=== PATIENT | female | born 1945 | race Caucasian/White ===

== ENCOUNTER 2017-11-27 18:51 | Emergency (ER) | payer MEDICARE, MEDICAID ==
[~2017-11-27] VITALS: Ht 154.9 cm; Wt 77.0 kg
[~2017-11-27 18:51] MED LIST: CARV-50 PO; CYCL-1 PO; DOCU-28 PO; DOCU100C40 PO; GABA-532 PO; GOLYS PO; HYDR-569 PO; INSU100C4 SQ; LANTUS SQ; NITR100C6 PO; OMEP-84 PO; ONDA8TAB6 PO; ROSU10TA PO; SUCR1TAB PO; VALS40TA2 PO
[2017-11-27 19:27] VITALS: BP 122/41
[2017-11-27] MEDS ORDERED: HYDROcodone/acetaminophen 5mg/325mg tablet PO ONE (21:55)
== END 2017-11-27 22:10 | disposition home or self-care (01) ==
LOC: ER 18:52
DX: S16.1XXA Strain of muscle, fascia and tendon at neck level, initial encounter (principal); E11.42 Type 2 diabetes mellitus with diabetic polyneuropathy; I25.10 Atherosclerotic heart disease of native coronary artery without angina pectoris; E78.00 Pure hypercholesterolemia, unspecified; I10 Essential (primary) hypertension; Z86.718 Personal history of other venous thrombosis and embolism; Z90.710 Acquired absence of both cervix and uterus; Z59.0 Homelessness; Z79.4 Long term (current) use of insulin; X58.XXXA Exposure to other specified factors, initial encounter; Y93.89 Activity, other specified; Y92.89 Other specified places as the place of occurrence of the external cause; Y99.8 Other external cause status; Z88.0 Allergy status to penicillin
CPT/HCPCS: 82948; 99283

== ENCOUNTER 2018-03-26 15:05 | Emergency (ER) | payer MEDICARE, MEDICAID ==
[~2018-03-26] VITALS: Ht 154.9 cm; Wt 73.9 kg
[~2018-03-26 15:05] MED LIST changes: -NITR100C6 PO
[2018-03-26 16:28] LABS: BASOPHILS % (AUTO) 0.3 % (0-1); EOSINOPHILS # (AUTO) 0.1 X10'3 (0-0.9); EOSINOPHILS % (AUTO) 2.1 % (0-6); HEMATOCRIT 36.6 % (35.0-45.0); HEMOGLOBIN 12.7 g/dl (12.0-16.0); LYMPHOCYTES # (AUTO) 1.2 X10'3 (1.1-4.8); LYMPHOCYTES % (AUTO) 20.4 % (21-51); MEAN CORPUSCULAR HEMOGLOBIN 31.1 PG (27.0-31.0); MEAN CORPUSCULAR HGB CONC 34.6 % (33.0-36.5); MEAN CORPUSCULAR VOLUME 89.7 FL (78-98); MEAN PLATELET VOLUME 10.5 FL (7.4-10.4); MONOCYTES # (AUTO) 0.3 X10'3 (0-0.9); MONOCYTES % (AUTO) 4.7 % (2-12); NEUTROPHILS # (AUTO) 4.2 X10'3 (1.8-7.7); NEUTROPHILS % (AUTO) 72.5 % (42-75); PLATELET COUNT 215 X10'3 (140-440); RED BLOOD COUNT 4.08 X10'6 (4.20-5.60); RED CELL DISTRIBUTION WIDTH 13.2 % (11.5-14.5); WHITE BLOOD COUNT 5.8 X10'3 (4.5-11.0)
[2018-03-26 16:39] LABS: PROTHROMBIN TIME 9.9 SECONDS (9.0-12.0)
[2018-03-26 16:42] LABS: LARGE PLATELETS FEW; PLATELET ESTIMATE NORMAL
[2018-03-26 16:44] LABS: ALANINE AMINOTRANSFERASE 20 U/L (12-78); ALBUMIN 3.4 G/DL (3.4-5.0); ALKALINE PHOSPHATASE 143 IU/L (46-116); ANION GAP 10 (8-16); ASPARTATE AMINO TRANSFERASE 14 U/L (10-37); BILIRUBIN,TOTAL 0.6 MG/DL (0.1-1.0); BLOOD UREA NITROGEN 13 MG/DL (7-18); BUN/CREATININE RATIO 15.3 (6.6-38.0); CHLORIDE 99 MMOL/L (99-107); CREATININE 0.85 MG/DL (0.40-0.90); GLUCOSE 428 MG/DL (70-104); POTASSIUM 4.3 MMOL/L (3.5-5.1); SODIUM 133 MMOL/L (135-145); TOTAL CARBON DIOXIDE 24.3 MMOL/L (24-32); TOTAL PROTEIN 6.9 G/DL (6.4-8.2); eGFR 65 ML/MIN
[2018-03-26] MEDS ORDERED: ondansetron 4mg rapidly disintigrating tab PO ONE (18:30)
[2018-03-26] MEDS ORDERED: HYDROcodone/acetaminophen 5mg/325mg tablet PO ONE (18:30)
[2018-03-26 19:01] LABS: CLARITY,URINE CLEAR (Clear); COLOR,URINE YELLOW (Yellow); GLUCOSE, URINE >=1000 mg/dl (Neg); KETONES,URINE 15 mg/dl (Neg); LEUKOCYTE ESTERASE ,URINE NEGATIVE (Neg); NITRITES, URINE NEGATIVE (Neg); OCCULT BLOOD,URINE TRACE-INTACT (Neg); PROTEIN,URINE 100 mg/dl (Neg); UROBILINOGEN,URINE 0.2 E.U/dL (0.2-1.0)
[2018-03-26 19:07] LABS: UA COLLECTION TYPE CLN CATCH MIDSTREAM
[2018-03-26 19:08] LABS: BACTERIA,URINE NONE SEEN /HPF (Neg); RBC,URINE 0-2 /HPF (0-2); SQUAMOUS EPITHELIAL CELL,UR FEW /LPF (FEW); WBC,URINE 0-4 /HPF (0-4)
[2018-03-26 19:09] LABS: YEAST FEW /HPF (NEGATIVE)
[2018-03-26] MEDS ORDERED: hydrALAZINE 25 MG tablet PO ONE (19:25)
[2018-03-26] MEDS ORDERED: ESOM40CA30 PO (19:41)
[2018-03-26] MEDS ORDERED: HYDR-3965 PO (19:41)
[2018-03-26] MEDS ORDERED: ONDA4TAB12 PO (19:41)
[2018-03-26 19:56] VITALS: BP 180/93
== END 2018-03-26 19:58 | disposition home or self-care (01) ==
LOC: ER 15:06
DX: R10.12 Left upper quadrant pain (principal); R10.84 Generalized abdominal pain; R11.0 Nausea; E78.00 Pure hypercholesterolemia, unspecified; I25.10 Atherosclerotic heart disease of native coronary artery without angina pectoris; I49.9 Cardiac arrhythmia, unspecified; E11.42 Type 2 diabetes mellitus with diabetic polyneuropathy; I10 Essential (primary) hypertension; Z86.718 Personal history of other venous thrombosis and embolism; Z90.49 Acquired absence of other specified parts of digestive tract; Z90.710 Acquired absence of both cervix and uterus; Z98.890 Other specified postprocedural states; Z60.2 Problems related to living alone; Z88.0 Allergy status to penicillin; Z88.8 Allergy status to other drugs, medicaments and biological substances; Z88.5 Allergy status to narcotic agent; Z88.1 Allergy status to other antibiotic agents; Z79.4 Long term (current) use of insulin; Z79.899 Other long term (current) drug therapy
CPT/HCPCS: 36415; 74176; 80053; 81001; 85025; 85610; 99285

== ENCOUNTER 2018-06-24 23:38 | Emergency (ER) | payer MEDICARE, MEDICAID ==
[~2018-06-24] VITALS: Ht 154.9 cm; Wt 75.4 kg
[~2018-06-24 23:38] MED LIST changes: +ESOM40CA30 PO; +HYDR-4383 PO; -HYDR-569 PO; +ONDA4TAB12 PO
[2018-06-24 23:49] VITALS: BP 198/100
[2018-06-25] MEDS ORDERED: LORazepam 2 mg/ml vial IV ONE (01:40)
[2018-06-25] MEDS ORDERED: diphenhydrAMINE 50 mg/ml inj IV ONE (01:40)
[2018-06-25] MEDS ORDERED: ondansetron/PF 4mg/2ml inj IV ONE (01:40)
[2018-06-25] MEDS ORDERED: ketorolac trometh. 30mg/ml inj. IV ONE (01:40)
== END 2018-06-25 03:26 | disposition home or self-care (01) ==
LOC: ER 23:39
DX: G43.909 Migraine, unspecified, not intractable, without status migrainosus (principal); E11.42 Type 2 diabetes mellitus with diabetic polyneuropathy; I25.10 Atherosclerotic heart disease of native coronary artery without angina pectoris; E78.00 Pure hypercholesterolemia, unspecified; I10 Essential (primary) hypertension; K21.9 Gastro-esophageal reflux disease without esophagitis; Z86.718 Personal history of other venous thrombosis and embolism; Z87.891 Personal history of nicotine dependence; Z90.49 Acquired absence of other specified parts of digestive tract; Z90.710 Acquired absence of both cervix and uterus; Z98.890 Other specified postprocedural states; Z88.8 Allergy status to other drugs, medicaments and biological substances; Z88.0 Allergy status to penicillin; Z88.1 Allergy status to other antibiotic agents; Z88.5 Allergy status to narcotic agent; Z88.6 Allergy status to analgesic agent; Z79.899 Other long term (current) drug therapy; Z79.4 Long term (current) use of insulin
CPT/HCPCS: 96374; 96375; 99284; J1200; J1885; J2060; J2405

== ENCOUNTER 2018-07-28 16:30 | Emergency (ER) | payer MEDICARE, MEDICAID ==
[~2018-07-28] VITALS: Ht 157.5 cm; Wt 75.0 kg
[2018-07-28 16:42] VITALS: BP 110/83
[2018-07-28] MEDS ORDERED: HYDROmorphone 1 mg/ml syringe IM ONE (16:50)
[2018-07-28] MEDS ORDERED: ondansetron 4mg rapidly disintigrating tab PO ONE (16:55)
[2018-07-28] MEDS ORDERED: HYDR-3965 PO (17:39)
== END 2018-07-28 18:03 | disposition home or self-care (01) ==
LOC: ER 16:31
DX: M25.512 Pain in left shoulder (principal); E11.42 Type 2 diabetes mellitus with diabetic polyneuropathy; I25.10 Atherosclerotic heart disease of native coronary artery without angina pectoris; E78.00 Pure hypercholesterolemia, unspecified; I10 Essential (primary) hypertension; K21.9 Gastro-esophageal reflux disease without esophagitis; Z86.718 Personal history of other venous thrombosis and embolism; Z90.49 Acquired absence of other specified parts of digestive tract; Z90.710 Acquired absence of both cervix and uterus; Z88.1 Allergy status to other antibiotic agents; Z88.5 Allergy status to narcotic agent; Z88.2 Allergy status to sulfonamides; Z91.018 Allergy to other foods; Z88.8 Allergy status to other drugs, medicaments and biological substances; Z79.4 Long term (current) use of insulin; Z79.01 Long term (current) use of anticoagulants; Z79.899 Other long term (current) drug therapy; Z60.2 Problems related to living alone; W18.39XA Other fall on same level, initial encounter; Y93.89 Activity, other specified; Y92.090 Kitchen in other non-institutional residence as the place of occurrence of the external cause; Y99.8 Other external cause status
CPT/HCPCS: 29105; 73060; 96372; 99284; J1170

== ENCOUNTER 2018-08-29 09:25 | Inpatient (IN) | payer MEDICARE, MEDICAID ==
[~2018-08-29] VITALS: Ht 154.9 cm; Wt 71.0 kg
[~2018-08-29 09:25] MED LIST changes: +HYDR-3965 PO
[2018-08-29 10:07] LABS: CLARITY,URINE CLEAR (Clear); COLOR,URINE YELLOW (Yellow); GLUCOSE, URINE >=1000 mg/dl (Neg); KETONES,URINE 40 mg/dl (Neg); LEUKOCYTE ESTERASE ,URINE NEGATIVE (Neg); NITRITES, URINE NEGATIVE (Neg); OCCULT BLOOD,URINE TRACE-LYSED (Neg); PROTEIN,URINE 100 mg/dl (Neg); UROBILINOGEN,URINE 0.2 E.U/dL (0.2-1.0)
[2018-08-29 10:08] LABS: UA COLLECTION TYPE VOIDED
[2018-08-29] MEDS ORDERED: normal saline 1000ml 1,000 ML IV ONE (10:09)
[2018-08-29] MEDS ORDERED: normal saline 1000ML IV soln IVB ONE (10:10)
[2018-08-29] MEDS ORDERED: ondansetron/PF 4mg/2ml inj IV ONE ×2 (10:10→12:50)
[2018-08-29 10:17] LABS: MUCUS STRANDS FEW /LPF (Neg); SQUAMOUS EPITHELIAL CELL,UR MODERATE /LPF (FEW)
[2018-08-29 10:20] LABS: BACTERIA,URINE 1+ /HPF (Neg); RBC,URINE 0-2 /HPF (0-2)
[2018-08-29 10:46] LABS: BASOPHILS % (AUTO) 0.5 % (0-1); EOSINOPHILS # (AUTO) 0.1 X10'3 (0-0.9); EOSINOPHILS % (AUTO) 1.9 % (0-6); HEMATOCRIT 33.9 % (35.0-45.0); HEMOGLOBIN 11.5 g/dl (12.0-16.0); LYMPHOCYTES % (AUTO) 18.3 % (21-51); MEAN CORPUSCULAR HEMOGLOBIN 31.6 PG (27.0-31.0); MEAN CORPUSCULAR HGB CONC 33.9 % (33.0-36.5); MEAN PLATELET VOLUME 10.3 FL (7.4-10.4); MONOCYTES # (AUTO) 0.2 X10'3 (0-0.9); MONOCYTES % (AUTO) 4.8 % (2-12); NEUTROPHILS # (AUTO) 3.9 X10'3 (1.8-7.7); NEUTROPHILS % (AUTO) 74.5 % (42-75); PLATELET COUNT 207 X10'3 (140-440); RED BLOOD COUNT 3.64 X10'6 (4.20-5.60); WHITE BLOOD COUNT 5.2 X10'3 (4.5-11.0)
[2018-08-29] MEDS: diatr meglu/diatrizoate 30ml oral sol.-(3 dose) bottle PO SCH ×3 (10:55→11:41)
[2018-08-29 11:07] LABS: ALANINE AMINOTRANSFERASE 18 U/L (12-78); ALBUMIN 3.4 G/DL (3.4-5.0); ALKALINE PHOSPHATASE 172 IU/L (46-116); ANION GAP 10 (8-16); ASPARTATE AMINO TRANSFERASE 13 U/L (10-37); BILIRUBIN,TOTAL 0.9 MG/DL (0.1-1.0); BLOOD UREA NITROGEN 11 MG/DL (7-18); BUN/CREATININE RATIO 15.1 (6.6-38.0); CALCIUM 9.1 MG/DL (8.5-10.1); CHLORIDE 99 MMOL/L (99-107); CREATININE 0.73 MG/DL (0.40-0.90); GLUCOSE 311 MG/DL (70-104); PARTIAL THROMBOPLASTIN TIME 25 SECONDS (22-32); POTASSIUM 4.1 MMOL/L (3.5-5.1); PROTHROMBIN TIME 10.3 SECONDS (9.0-12.0); SODIUM 136 MMOL/L (135-145); TOTAL CARBON DIOXIDE 27.2 MMOL/L (24-32); TOTAL PROTEIN 6.9 G/DL (6.4-8.2); eGFR 78 ML/MIN
[2018-08-29 11:12] LABS: ETHANOL < 0.010 GM/DL (0.0-0.010); LIPASE 55 U/L (73-393); MAGNESIUM 1.8 MG/DL (1.5-2.4)
[2018-08-29] MEDS ORDERED: insulin regular, human 10 units/0.1 ml syringe IV ONE (11:25)
[2018-08-29] MEDS: morphine 2 MG/ML inj. syringe IV PRN ×3 (11:54→22:43)
[2018-08-29] MEDS ORDERED: diphenhydrAMINE 50 mg/ml inj IV ONE (12:55)
[2018-08-29] MEDS ORDERED: iohexol 300mg/ml 100ml inj. ONE (13:19)
[2018-08-29] MEDS ORDERED: metroNIDAZOLE-Flagyl 500mg/NS 100 ML IV ONE (15:10)
[2018-08-29] MEDS: normal saline 1000ml 1,000 ML IV SCH ×2 (16:04→23:31)
[2018-08-29] MEDS ORDERED: HYDROmorphone 1 mg/ml syringe IV PRN (16:05)
[2018-08-29] MEDS ORDERED: dextrose 50%-water 50ml dispensing syringe IV PRN ×2 (16:05)
[2018-08-29] MEDS ORDERED: magnesium 4gm in 100ml NS 100 ML IV PRN (16:05)
[2018-08-29] MEDS ORDERED: magnesium hydroxide 30ml (MOM) UD suspension PO PRN (16:05)
[2018-08-29] MEDS ORDERED: MESSAGE TO PHARMACY PO ONE (16:05)
[2018-08-29] MEDS ORDERED: mag hydrox/Alum hydrox/simeth 30ml oral suspension PO PRN (16:05)
[2018-08-29] MEDS ORDERED: magnesium Cl slow-release 64mg tablet PO PRN (16:05)
[2018-08-29] MEDS ORDERED: acetaminophen 325mg tablet PO PRN ×2 (16:05)
[2018-08-29] MEDS ORDERED: potassium Cl 40MEQ/NS 500ml 500 ML IV PRN ×2 (16:05)
[2018-08-29] MEDS ORDERED: glucagon, human recombinant 1mg kit SUBCUT PRN (16:05)
[2018-08-29] MEDS ORDERED: potassium Cl 20 mEq SR tablet PO PRN ×2 (16:05)
[2018-08-29] MEDS: ondansetron/PF 4mg/2ml inj IV PRN (17:14)
[2018-08-29] MEDS: HYDROcodone/acetaminophen 10/325mg tab PO PRN (17:35)
[2018-08-29] MEDS: insulin glargine (Lantus) pen - multi-dose SQ SCH (21:00)
[2018-08-30] MEDS: ondansetron/PF 4mg/2ml inj IV PRN ×4 (00:48→19:29)
[2018-08-30] MEDS ORDERED: ondansetron/PF 4mg/2ml inj IV PRN (03:40)
[2018-08-30] MEDS ORDERED: LISI10TA4 PO (07:39)
[2018-08-30] MEDS ORDERED: LINA5TAB4 PO (07:39)
[2018-08-30] MEDS: K and/or MAG REPLACEMENT MC SCH (08:00)
[2018-08-30 09:18] LABS: BASOPHILS % (AUTO) 0.4 % (0-1); EOSINOPHILS # (AUTO) 0.2 X10'3 (0-0.9); EOSINOPHILS % (AUTO) 3.5 % (0-6); HEMATOCRIT 29.4 % (35.0-45.0); LYMPHOCYTES # (AUTO) 1.1 X10'3 (1.1-4.8); LYMPHOCYTES % (AUTO) 21.8 % (21-51); MEAN CORPUSCULAR HEMOGLOBIN 31.9 PG (27.0-31.0); MEAN CORPUSCULAR HGB CONC 34.1 % (33.0-36.5); MEAN CORPUSCULAR VOLUME 93.5 FL (78-98); MEAN PLATELET VOLUME 10.1 FL (7.4-10.4); MONOCYTES # (AUTO) 0.4 X10'3 (0-0.9); MONOCYTES % (AUTO) 7.7 % (2-12); NEUTROPHILS # (AUTO) 3.3 X10'3 (1.8-7.7); NEUTROPHILS % (AUTO) 66.6 % (42-75); PLATELET COUNT 185 X10'3 (140-440); RED BLOOD COUNT 3.14 X10'6 (4.20-5.60); RED CELL DISTRIBUTION WIDTH 13.9 % (11.5-14.5); WHITE BLOOD COUNT 4.9 X10'3 (4.5-11.0)
[2018-08-30 09:27] LABS: ALBUMIN 2.7 G/DL (3.4-5.0); ANION GAP 9 (8-16); BLOOD UREA NITROGEN 9 MG/DL (7-18); BUN/CREATININE RATIO 14.3 (6.6-38.0); CALCIUM 8.2 MG/DL (8.5-10.1); CHLORIDE 106 MMOL/L (99-107); CREATININE 0.63 MG/DL (0.40-0.90); GLUCOSE 149 MG/DL (70-104); MAGNESIUM 1.8 MG/DL (1.5-2.4); POTASSIUM 3.7 MMOL/L (3.5-5.1); SODIUM 141 MMOL/L (135-145); TOTAL CARBON DIOXIDE 25.7 MMOL/L (24-32); eGFR > 90 ML/MIN
[2018-08-30] MEDS: enoxaparin 40mg/0.4ml syringe SQ SCH (10:00)
[2018-08-30] MEDS: normal saline 1000ml 1,000 ML IV SCH (11:29)
[2018-08-30] MEDS: pantoprazole 40 MG vial IV SCH ×2 (11:29→19:25)
[2018-08-30 13:30] VITALS: BP 174/64
[2018-08-30] MEDS: HYDROcodone/acetaminophen 10/325mg tab PO PRN ×2 (14:20→19:26)
[2018-08-30] MEDS ORDERED: bisacodyl 10mg suppository rectal RC PRN (16:55)
[2018-08-30] MEDS ORDERED: magnesium hydroxide 30ml (MOM) UD suspension PO ONE (16:55)
[2018-08-30] MEDS: docusate sod 100mg capsule PO SCH (19:25)
[2018-08-30 20:00] VITALS: BP 132/58
[2018-08-30] MEDS: insulin glargine (Lantus) pen - multi-dose SQ SCH (23:25)
[2018-08-30] MEDS: insulin Lispro (HumaLOG) vial - multi-dose SQ SCH (23:27)
[2018-08-31] VITALS: BP 154/66
[2018-08-31] MEDS: ondansetron/PF 4mg/2ml inj IV PRN ×2 (01:33→09:15)
[2018-08-31] MEDS: normal saline 1000ml 1,000 ML IV SCH ×3 (01:35→17:08)
[2018-08-31] MEDS: HYDROcodone/acetaminophen 10/325mg tab PO PRN ×2 (01:38→07:59)
[2018-08-31] MEDS: K and/or MAG REPLACEMENT MC SCH (07:50)
[2018-08-31 08:00] VITALS: BP 195/103
[2018-08-31] MEDS: docusate sod 100mg capsule PO SCH ×2 (08:00→20:00)
[2018-08-31] MEDS: enoxaparin 40mg/0.4ml syringe SQ SCH (08:00)
[2018-08-31] MEDS: pantoprazole 40 MG vial IV SCH ×2 (09:15→19:14)
[2018-08-31] MEDS: insulin Lispro (HumaLOG) vial - multi-dose SQ SCH (09:26)
[2018-08-31 09:32] LABS: BASOPHILS % (AUTO) 0.5 % (0-1); EOSINOPHILS # (AUTO) 0.2 X10'3 (0-0.9); EOSINOPHILS % (AUTO) 4.5 % (0-6); HEMATOCRIT 28.2 % (35.0-45.0); HEMOGLOBIN 9.5 g/dl (12.0-16.0); LYMPHOCYTES # (AUTO) 0.9 X10'3 (1.1-4.8); LYMPHOCYTES % (AUTO) 20.8 % (21-51); MEAN CORPUSCULAR HEMOGLOBIN 31.4 PG (27.0-31.0); MEAN CORPUSCULAR HGB CONC 33.6 % (33.0-36.5); MEAN CORPUSCULAR VOLUME 93.4 FL (78-98); MEAN PLATELET VOLUME 9.6 FL (7.4-10.4); MONOCYTES # (AUTO) 0.3 X10'3 (0-0.9); MONOCYTES % (AUTO) 7.9 % (2-12); NEUTROPHILS # (AUTO) 2.9 X10'3 (1.8-7.7); NEUTROPHILS % (AUTO) 66.3 % (42-75); PLATELET COUNT 183 X10'3 (140-440); RED BLOOD COUNT 3.02 X10'6 (4.20-5.60); RED CELL DISTRIBUTION WIDTH 14.1 % (11.5-14.5); WHITE BLOOD COUNT 4.4 X10'3 (4.5-11.0)
[2018-08-31 09:38] LABS: ALBUMIN 2.5 G/DL (3.4-5.0); ANION GAP 10 (8-16); BLOOD UREA NITROGEN 6 MG/DL (7-18); BUN/CREATININE RATIO 9.2 (6.6-38.0); CHLORIDE 105 MMOL/L (99-107); CREATININE 0.65 MG/DL (0.40-0.90); GLUCOSE 171 MG/DL (70-104); MAGNESIUM 1.8 MG/DL (1.5-2.4); POTASSIUM 3.3 MMOL/L (3.5-5.1); SODIUM 140 MMOL/L (135-145); TOTAL CARBON DIOXIDE 25.5 MMOL/L (24-32); eGFR 89 ML/MIN
[2018-08-31 11:00] VITALS: BP 186/74
[2018-08-31 11:50] LABS: H PYLORI ANTIBODY NEGATIVE (Neg)
[2018-08-31] MEDS: diatr meglu/diatrizoate 30ml oral sol.-(3 dose) bottle PO PRN ×2 (13:06→17:07)
[2018-08-31] MEDS: ondansetron inj. 24 MG in normal saline 250ml IV soln 228 ML IV SCH (13:06)
[2018-08-31] MEDS: HYDROmorphone 1 mg/ml syringe IV PRN ×3 (13:24→23:12)
[2018-08-31] MEDS ORDERED: iohexol 300mg/ml 100ml inj. ONE (17:11)
[2018-08-31] MEDS ORDERED: vancomycin/NS 1 GM ADD-VANTAGE 250 ML IV SCH (18:00)
[2018-08-31] MEDS: hydrALAZINE 20mg/ml inj. IV SCH ×2 (20:00→23:15)
[2018-08-31] MEDS: vancomycin/NS 1 GM ADD-VANTAGE 250 ML IV SCH (20:04)
[2018-08-31] MEDS ORDERED: diatr meglu/diatrizoate 30ml oral sol.-(3 dose) bottle PO SCH (21:00)
[2018-08-31 23:14] VITALS: BP 211/99
[2018-08-31 23:21] VITALS: BP 199/74
[2018-08-31 23:28] VITALS: BP 155/84
[2018-08-31] MEDS: metroNIDAZOLE-Flagyl 500mg/NS 100 ML IV SCH (23:47)
[2018-08-31] MEDS: insulin glargine (Lantus) pen - multi-dose SQ SCH (23:49)
[2018-09-01] VITALS (9 sets, daily range): BP systolic 140–217; BP diastolic 50–104
[2018-09-01] MEDS: LORazepam 2 mg/ml vial IV PRN ×3 (01:30→20:39)
[2018-09-01] MEDS: normal saline 1000ml 1,000 ML IV SCH ×3 (04:33→18:50)
[2018-09-01] MEDS: HYDROmorphone 1 mg/ml syringe IV PRN ×2 (04:34→19:30)
[2018-09-01] MEDS ORDERED: MIDAZolam 5mg/5ml vial ONE (06:21)
[2018-09-01] MEDS ORDERED: fentaNYL/PF 50MCG/1 ML 2ML syringe ONE (06:21)
[2018-09-01] MEDS ORDERED: LIDOcaine Viscous 15ml cup ONE (06:21)
[2018-09-01] MEDS: docusate sod 100mg capsule PO SCH ×3 (08:00→20:08)
[2018-09-01] MEDS: K and/or MAG REPLACEMENT MC SCH (08:00)
[2018-09-01] MEDS: vancomycin/NS 1 GM ADD-VANTAGE 250 ML IV SCH ×2 (08:27→20:07)
[2018-09-01] MEDS: hydrALAZINE 20mg/ml inj. IV SCH ×3 (08:27→20:07)
[2018-09-01] MEDS: pantoprazole 40 MG vial IV SCH ×2 (08:27→20:04)
[2018-09-01] MEDS: insulin Lispro (HumaLOG) vial - multi-dose SQ SCH (09:15)
[2018-09-01 09:22] LABS: BASOPHILS % (AUTO) 0.3 % (0-1); EOSINOPHILS # (AUTO) 0.1 X10'3 (0-0.9); EOSINOPHILS % (AUTO) 1.5 % (0-6); HEMATOCRIT 30.8 % (35.0-45.0); HEMOGLOBIN 10.4 g/dl (12.0-16.0); LYMPHOCYTES # (AUTO) 0.6 X10'3 (1.1-4.8); MEAN CORPUSCULAR HEMOGLOBIN 31.9 PG (27.0-31.0); MEAN CORPUSCULAR HGB CONC 33.8 % (33.0-36.5); MEAN CORPUSCULAR VOLUME 94.3 FL (78-98); MEAN PLATELET VOLUME 9.6 FL (7.4-10.4); MONOCYTES # (AUTO) 0.3 X10'3 (0-0.9); MONOCYTES % (AUTO) 6.5 % (2-12); NEUTROPHILS # (AUTO) 4.1 X10'3 (1.8-7.7); NEUTROPHILS % (AUTO) 80.7 % (42-75); PLATELET COUNT 192 X10'3 (140-440); RED BLOOD COUNT 3.26 X10'6 (4.20-5.60); RED CELL DISTRIBUTION WIDTH 13.9 % (11.5-14.5); WHITE BLOOD COUNT 5.1 X10'3 (4.5-11.0)
[2018-09-01 09:49] LABS: ALBUMIN 2.6 G/DL (3.4-5.0); ANION GAP 10 (8-16); BLOOD UREA NITROGEN 6 MG/DL (7-18); BUN/CREATININE RATIO 9.2 (6.6-38.0); CHLORIDE 105 MMOL/L (99-107); CREATININE 0.65 MG/DL (0.40-0.90); GLUCOSE 183 MG/DL (70-104); MAGNESIUM 1.8 MG/DL (1.5-2.4); POTASSIUM 3.3 MMOL/L (3.5-5.1); SODIUM 140 MMOL/L (135-145); TOTAL CARBON DIOXIDE 25.4 MMOL/L (24-32); eGFR 89 ML/MIN
[2018-09-01] MEDS: metroNIDAZOLE-Flagyl 500mg/NS 100 ML IV SCH ×2 (10:24→17:14)
[2018-09-01] MEDS: ondansetron inj. 24 MG in normal saline 250ml IV soln 228 ML IV SCH (11:52)
[2018-09-01] MEDS ORDERED: meclizine 12.5mg tablet PO PRN (12:00)
[2018-09-01] MEDS ORDERED: hydrALAZINE 20mg/ml inj. IV PRN ×2 (12:00→18:30)
[2018-09-01] MEDS ORDERED: HYDROmorphone inj. 0.5 MG/0.5 ML DISP.SYRIN IV PRN (19:05)
[2018-09-01] MEDS ORDERED: potassium Cl 40MEQ/NS 500ml 500 ML IV PRN ×2 (19:50)
[2018-09-01] MEDS ORDERED: potassium Cl 20 mEq SR tablet PO PRN ×2 (19:50)
[2018-09-01] MEDS: insulin glargine (Lantus) pen - multi-dose SQ SCH (22:00)
[2018-09-02] VITALS: BP 126/50
[2018-09-02] MEDS: metroNIDAZOLE-Flagyl 500mg/NS 100 ML IV SCH ×3 (00:57→15:13)
[2018-09-02] MEDS: LORazepam 2 mg/ml vial IV PRN ×3 (01:28→19:47)
[2018-09-02 02:00] VITALS: BP 147/82
[2018-09-02 02:10] VITALS: BP 147/82
[2018-09-02] MEDS: hydrALAZINE 20mg/ml inj. IV SCH ×4 (02:23→19:47)
[2018-09-02] MEDS ORDERED: VANCOMYCIN LEVEL IV ONE (07:30)
[2018-09-02] MEDS: docusate sod 100mg capsule PO SCH ×2 (08:00→19:31)
[2018-09-02] MEDS: K and/or MAG REPLACEMENT MC SCH (08:00)
[2018-09-02] MEDS: enoxaparin 40mg/0.4ml syringe SQ SCH (08:20)
[2018-09-02] MEDS: pantoprazole 40 MG vial IV SCH ×2 (08:20→19:47)
[2018-09-02 09:04] VITALS: BP 198/90
[2018-09-02 09:39] LABS: BASOPHILS % (AUTO) 0.4 % (0-1); EOSINOPHILS # (AUTO) 0.1 X10'3 (0-0.9); EOSINOPHILS % (AUTO) 1.9 % (0-6); HEMATOCRIT 29.9 % (35.0-45.0); LYMPHOCYTES # (AUTO) 0.7 X10'3 (1.1-4.8); LYMPHOCYTES % (AUTO) 10.8 % (21-51); MEAN CORPUSCULAR HEMOGLOBIN 31.4 PG (27.0-31.0); MEAN CORPUSCULAR HGB CONC 33.4 % (33.0-36.5); MEAN CORPUSCULAR VOLUME 94.3 FL (78-98); MEAN PLATELET VOLUME 9.4 FL (7.4-10.4); MONOCYTES # (AUTO) 0.5 X10'3 (0-0.9); MONOCYTES % (AUTO) 7.7 % (2-12); NEUTROPHILS % (AUTO) 79.2 % (42-75); PLATELET COUNT 180 X10'3 (140-440); RED BLOOD COUNT 3.17 X10'6 (4.20-5.60); RED CELL DISTRIBUTION WIDTH 14.6 % (11.5-14.5); WHITE BLOOD COUNT 6.4 X10'3 (4.5-11.0)
[2018-09-02 09:53] LABS: ALBUMIN 2.3 G/DL (3.4-5.0); ANION GAP 12 (8-16); BLOOD UREA NITROGEN 9 MG/DL (7-18); BUN/CREATININE RATIO 12.7 (6.6-38.0); CHLORIDE 110 MMOL/L (99-107); CREATININE 0.71 MG/DL (0.40-0.90); GLUCOSE 102 MG/DL (70-104); MAGNESIUM 1.8 MG/DL (1.5-2.4); POTASSIUM 3.2 MMOL/L (3.5-5.1); SODIUM 143 MMOL/L (135-145); VANCOMYCIN,TROUGH 17.2 UG/ML (6.0-14.0); eGFR 80 ML/MIN
[2018-09-02] MEDS ORDERED: LIDOcaine 1% 30ml vial 5 ML in potassium Cl 40MEQ/NS 500ml 500 ML IV PRN (10:40)
[2018-09-02] MEDS: ondansetron inj. 24 MG in normal saline 250ml IV soln 228 ML IV SCH ×3 (11:03→14:03)
[2018-09-02] MEDS: vancomycin/NS 1 GM ADD-VANTAGE 250 ML IV SCH (11:21)
[2018-09-02] MEDS: HYDROmorphone 1 mg/ml syringe IV PRN (16:04)
[2018-09-02 18:00] VITALS: BP 166/58
[2018-09-02] MEDS: dexamethasone 4mg/ml inj IV SCH (19:48)
[2018-09-02] MEDS: normal saline 1000ml 1,000 ML IV SCH (19:49)
[2018-09-02] MEDS: metoprolol tartrate 25mg tablet PO SCH (19:59)
[2018-09-02] MEDS: lactobacillus rhamnosus 10,000 MMU CELLS/CAPSULE PO SCH (19:59)
[2018-09-02] MEDS: insulin glargine (Lantus) pen - multi-dose SQ SCH (20:51)
[2018-09-03] VITALS (7 sets, daily range): BP systolic 101–144; BP diastolic 40–59
[2018-09-03] MEDS: LORazepam 2 mg/ml vial IV PRN ×2 (00:53→08:06)
[2018-09-03] MEDS: dexamethasone 4mg/ml inj IV SCH ×4 (01:52→22:04)
[2018-09-03] MEDS: hydrALAZINE 20mg/ml inj. IV SCH ×4 (01:53→22:04)
[2018-09-03] MEDS: HYDROmorphone 1 mg/ml syringe IV PRN ×3 (02:14→22:05)
[2018-09-03 06:39] LABS: ALBUMIN 2.4 G/DL (3.4-5.0); ANION GAP 17 (8-16); BLOOD UREA NITROGEN 12 MG/DL (7-18); BUN/CREATININE RATIO 15.2 (6.6-38.0); CHLORIDE 108 MMOL/L (99-107); CREATININE 0.79 MG/DL (0.40-0.90); GLUCOSE 117 MG/DL (70-104); MAGNESIUM 1.9 MG/DL (1.5-2.4); POTASSIUM 4.1 MMOL/L (3.5-5.1); SODIUM 142 MMOL/L (135-145); TOTAL CARBON DIOXIDE 17.2 MMOL/L (24-32); eGFR 71 ML/MIN
[2018-09-03] MEDS: lactobacillus rhamnosus 10,000 MMU CELLS/CAPSULE PO SCH ×2 (07:49→20:00)
[2018-09-03] MEDS: docusate sod 100mg capsule PO SCH ×2 (07:49→20:00)
[2018-09-03] MEDS: K and/or MAG REPLACEMENT MC SCH (07:50)
[2018-09-03] MEDS: metoprolol tartrate 25mg tablet PO SCH ×2 (07:56→20:00)
[2018-09-03] MEDS: pantoprazole 40 MG vial IV SCH ×2 (08:06→22:04)
[2018-09-03] MEDS: normal saline 1000ml 1,000 ML IV SCH ×2 (08:06→21:21)
[2018-09-03] MEDS: enoxaparin 40mg/0.4ml syringe SQ SCH (08:07)
[2018-09-03] MEDS: ondansetron inj. 24 MG in normal saline 250ml IV soln 228 ML IV SCH (11:13)
[2018-09-03] MEDS ORDERED: diazepam 2mg tablet PO PRN (14:30)
[2018-09-03 17:28] LABS: BASOPHILS % (AUTO) 0.5 % (0-1); EOSINOPHILS # (AUTO) 0.1 X10'3 (0-0.9); EOSINOPHILS % (AUTO) 0.8 % (0-6); HEMATOCRIT 31.9 % (35.0-45.0); HEMOGLOBIN 10.6 g/dl (12.0-16.0); LYMPHOCYTES # (AUTO) 0.5 X10'3 (1.1-4.8); LYMPHOCYTES % (AUTO) 7.5 % (21-51); MEAN CORPUSCULAR HEMOGLOBIN 31.7 PG (27.0-31.0); MEAN CORPUSCULAR HGB CONC 33.3 % (33.0-36.5); MEAN CORPUSCULAR VOLUME 95.3 FL (78-98); MEAN PLATELET VOLUME 9.8 FL (7.4-10.4); MONOCYTES # (AUTO) 0.2 X10'3 (0-0.9); NEUTROPHILS # (AUTO) 6.4 X10'3 (1.8-7.7); NEUTROPHILS % (AUTO) 88.2 % (42-75); PLATELET COUNT 259 X10'3 (140-440); RED BLOOD COUNT 3.34 X10'6 (4.20-5.60); RED CELL DISTRIBUTION WIDTH 13.9 % (11.5-14.5); WHITE BLOOD COUNT 7.3 X10'3 (4.5-11.0)
[2018-09-03] MEDS: insulin Lispro (HumaLOG) vial - multi-dose SQ SCH ×2 (19:06→22:18)
[2018-09-03] MEDS: ketorolac trometh. 30mg/ml inj. IM PRN (19:09)
[2018-09-03] MEDS: polyethylene glycol 3350 17gm powd pack PO SCH (20:03)
[2018-09-03] MEDS: insulin glargine (Lantus) pen - multi-dose SQ SCH (22:17)
[2018-09-04 03:00] VITALS: BP 128/47
[2018-09-04] MEDS: hydrALAZINE 20mg/ml inj. IV SCH ×4 (03:23→20:00)
[2018-09-04] MEDS: dexamethasone 4mg/ml inj IV SCH (03:24)
[2018-09-04] MEDS: HYDROmorphone 1 mg/ml syringe IV PRN ×3 (05:45→17:33)
[2018-09-04 07:10] VITALS: BP 141/55
[2018-09-04] MEDS: K and/or MAG REPLACEMENT MC SCH (08:00)
[2018-09-04] MEDS: enoxaparin 40mg/0.4ml syringe SQ SCH (08:25)
[2018-09-04] MEDS: docusate sod 100mg capsule PO SCH ×2 (08:26→21:10)
[2018-09-04] MEDS: metoprolol tartrate 25mg tablet PO SCH ×2 (08:26→20:00)
[2018-09-04] MEDS: pantoprazole 40 MG vial IV SCH ×2 (08:26→21:10)
[2018-09-04] MEDS: lactobacillus rhamnosus 10,000 MMU CELLS/CAPSULE PO SCH ×2 (08:26→21:10)
[2018-09-04] MEDS: insulin Lispro (HumaLOG) vial - multi-dose SQ SCH ×2 (08:33→13:03)
[2018-09-04] MEDS ORDERED: bisacodyl 10mg suppository rectal RC PRN (10:00)
[2018-09-04] MEDS: normal saline 1000ml 1,000 ML IV SCH ×2 (11:39→13:48)
[2018-09-04] MEDS: ondansetron inj. 24 MG in normal saline 250ml IV soln 228 ML IV SCH (12:21)
[2018-09-04 13:52] VITALS: BP 102/46
[2018-09-04] MEDS: HYDROcodone/acetaminophen 5mg/325mg tablet PO PRN (15:55)
[2018-09-04 16:32] VITALS: BP 113/42
[2018-09-04] MEDS: dextrose ORAL solution 15 GM/59 ML bottle PO PRN ×2 (17:09→17:30)
[2018-09-04 18:00] VITALS: BP 98/50
[2018-09-04] MEDS: diphenhydrAMINE 50 mg/ml inj IV PRN (18:22)
[2018-09-04] MEDS: polyethylene glycol 3350 17gm powd pack PO SCH (21:10)
[2018-09-04 22:00] VITALS: BP 140/64
[2018-09-04] MEDS: insulin glargine (Lantus) pen - multi-dose SQ SCH (22:01)
[2018-09-05] MEDS: HYDROmorphone 1 mg/ml syringe IV PRN (01:52)
[2018-09-05] MEDS: hydrALAZINE 20mg/ml inj. IV SCH ×2 (01:54→09:03)
[2018-09-05 02:00] VITALS: BP 125/49
[2018-09-05] MEDS: normal saline 1000ml 1,000 ML IV SCH (04:13)
[2018-09-05] MEDS: diphenhydrAMINE 50 mg/ml inj IV PRN (04:22)
[2018-09-05 08:00] VITALS: BP 128/58
[2018-09-05] MEDS: K and/or MAG REPLACEMENT MC SCH (08:00)
[2018-09-05] MEDS: metoprolol tartrate 25mg tablet PO SCH (08:58)
[2018-09-05] MEDS: lactobacillus rhamnosus 10,000 MMU CELLS/CAPSULE PO SCH ×2 (09:02→19:39)
[2018-09-05] MEDS: docusate sod 100mg capsule PO SCH ×2 (09:02→19:39)
[2018-09-05] MEDS: pantoprazole 40 MG vial IV SCH (09:02)
[2018-09-05] MEDS: enoxaparin 40mg/0.4ml syringe SQ SCH (09:04)
[2018-09-05] MEDS: insulin Lispro (HumaLOG) vial - multi-dose SQ SCH ×3 (10:00→19:15)
[2018-09-05 10:56] LABS: BASOPHILS % (AUTO) 0.3 % (0-1); EOSINOPHILS # (AUTO) 0.3 X10'3 (0-0.9); EOSINOPHILS % (AUTO) 4.1 % (0-6); HEMATOCRIT 32.1 % (35.0-45.0); HEMOGLOBIN 10.6 g/dl (12.0-16.0); LYMPHOCYTES # (AUTO) 1.7 X10'3 (1.1-4.8); LYMPHOCYTES % (AUTO) 21.2 % (21-51); MEAN CORPUSCULAR HEMOGLOBIN 31.8 PG (27.0-31.0); MEAN CORPUSCULAR HGB CONC 33.2 % (33.0-36.5); MEAN CORPUSCULAR VOLUME 95.8 FL (78-98); MEAN PLATELET VOLUME 9.6 FL (7.4-10.4); MONOCYTES # (AUTO) 0.7 X10'3 (0-0.9); MONOCYTES % (AUTO) 8.2 % (2-12); NEUTROPHILS # (AUTO) 5.2 X10'3 (1.8-7.7); NEUTROPHILS % (AUTO) 66.2 % (42-75); PLATELET COUNT 241 X10'3 (140-440); RED BLOOD COUNT 3.35 X10'6 (4.20-5.60); RED CELL DISTRIBUTION WIDTH 14.7 % (11.5-14.5); WHITE BLOOD COUNT 7.9 X10'3 (4.5-11.0)
[2018-09-05 11:00] VITALS: BP 129/66
[2018-09-05 11:05] LABS: ALANINE AMINOTRANSFERASE 17 U/L (12-78); ALBUMIN 2.2 G/DL (3.4-5.0); ALBUMIN/GLOBULIN RATIO 0.9 (1.1-1.5); ALKALINE PHOSPHATASE 122 IU/L (46-116); ANION GAP 10 (8-16); ASPARTATE AMINO TRANSFERASE 12 U/L (10-37); BILIRUBIN,TOTAL 0.4 MG/DL (0.1-1.0); BLOOD UREA NITROGEN 27 MG/DL (7-18); BUN/CREATININE RATIO 20.1 (6.6-38.0); CALCIUM 7.4 MG/DL (8.5-10.1); CHLORIDE 108 MMOL/L (99-107); CREATININE 1.34 MG/DL (0.40-0.90); GLUCOSE 172 MG/DL (70-104); POTASSIUM 3.6 MMOL/L (3.5-5.1); SODIUM 139 MMOL/L (135-145); TOTAL PROTEIN 4.7 G/DL (6.4-8.2); eGFR 39 ML/MIN
[2018-09-05] MEDS ORDERED: LORazepam 0.5 MG tablet PO PRN (12:00)
[2018-09-05] MEDS: sertraline 25mg tablet PO SCH (12:27)
[2018-09-05] MEDS: ketorolac trometh. 30mg/ml inj. IM PRN (13:48)
[2018-09-05 15:00] VITALS: BP 129/67
[2018-09-05] MEDS: HYDROcodone/acetaminophen 5mg/325mg tablet PO PRN (15:03)
[2018-09-05] MEDS: ondansetron/PF 4mg/2ml inj IV PRN ×2 (15:04→21:53)
[2018-09-05] MEDS: hyDRALAzine 10mg tablet PO SCH (16:50)
[2018-09-05 19:00] VITALS: BP 144/61
[2018-09-05] MEDS: polyethylene glycol 3350 17gm powd pack PO SCH (19:39)
[2018-09-05] MEDS: insulin glargine (Lantus) pen - multi-dose SQ SCH (21:40)
[2018-09-05] MEDS: HYDROcodone/acetaminophen 10/325mg tab PO PRN (21:53)
[2018-09-05 23:00] VITALS: BP 139/50
[2018-09-06] MEDS: hyDRALAzine 10mg tablet PO SCH ×2 (00:41→08:24)
[2018-09-06] MEDS: HYDROcodone/acetaminophen 10/325mg tab PO PRN (02:33)
[2018-09-06 03:00] VITALS: BP 132/66
[2018-09-06] MEDS: ondansetron/PF 4mg/2ml inj IV PRN ×2 (04:15→11:34)
[2018-09-06 07:00] VITALS: BP 161/61
[2018-09-06] MEDS: dextrose ORAL solution 15 GM/59 ML bottle PO PRN ×2 (07:29→08:00)
[2018-09-06] MEDS ORDERED: pantoprazole 40mg Tablet.DR PO SCH (07:30)
[2018-09-06] MEDS: normal saline 1000ml 1,000 ML IV SCH (08:06)
[2018-09-06] MEDS: sertraline 25mg tablet PO SCH (08:23)
[2018-09-06] MEDS: lactobacillus rhamnosus 10,000 MMU CELLS/CAPSULE PO SCH (08:24)
[2018-09-06] MEDS: docusate sod 100mg capsule PO SCH (08:24)
[2018-09-06] MEDS: enoxaparin 40mg/0.4ml syringe SQ SCH (08:27)
[2018-09-06] MEDS ORDERED: clonazePAM 0.5mg tablet PO SCH (08:40)
[2018-09-07] MEDS ORDERED: sertraline 25mg tablet PO SCH (08:00)
== END 2018-09-06 15:05 | DRG 392 ==
LOC: ER 09:26 → ED HOLD 16:04 → OBSVTOIN 16:04 → SUR 3N 08-30 13:53 → PCU 3S 09-03 10:30
PROVIDERS: ADMIT Hospitalist; ATTEND Family Medicine
PROC: BW211ZZ Computerized Tomography (CT Scan) of Abdomen and Pelvis using Low Osmolar Contrast (ICD-10-PCS; 2018-08-31)
PROC: 0DB68ZX Excision of Stomach, Via Natural or Artificial Opening Endoscopic, Diagnostic (ICD-10-PCS; principal; 2018-09-01)
DX: K29.70 Gastritis, unspecified, without bleeding (principal); E11.43 Type 2 diabetes mellitus with diabetic autonomic (poly)neuropathy; I10 Essential (primary) hypertension; K31.84 Gastroparesis; E11.42 Type 2 diabetes mellitus with diabetic polyneuropathy; E78.00 Pure hypercholesterolemia, unspecified; E78.5 Hyperlipidemia, unspecified; F41.1 Generalized anxiety disorder; K57.30 Diverticulosis of large intestine without perforation or abscess without bleeding; M54.2 Cervicalgia; I25.10 Atherosclerotic heart disease of native coronary artery without angina pectoris; E87.6 Hypokalemia; K59.00 Constipation, unspecified; Z60.2 Problems related to living alone; K21.9 Gastro-esophageal reflux disease without esophagitis; Z90.49 Acquired absence of other specified parts of digestive tract; Z90.710 Acquired absence of both cervix and uterus; Z88.5 Allergy status to narcotic agent; Z88.0 Allergy status to penicillin; Z88.9 Allergy status to unspecified drugs, medicaments and biological substances; Z88.8 Allergy status to other drugs, medicaments and biological substances; Z91.018 Allergy to other foods; Z79.4 Long term (current) use of insulin; Z79.899 Other long term (current) drug therapy; Z86.718 Personal history of other venous thrombosis and embolism; Z87.440 Personal history of urinary (tract) infections; Z87.01 Personal history of pneumonia (recurrent); Z87.11 Personal history of peptic ulcer disease
CPT/HCPCS: 36415; 43239; 70551; 72125; 74018; 74176; 74177; 80048; 80053; 80202; 80320; 81001; 82948; 83036; 83605; 83690; 83735; 84132; 84145; 84484; 85025; 85610; 85730; 86677; 87070; 87088; 87502; 87503; 88305; 93005; 93975; 96361; 96365; 96375; 96376; 97116; 97162; 97530; 99152; 99285; A4620; C9113; G0378; J0360; J1100; J1170; J1200; J1650; J1815; J1885; J2060; J2250; J2270; J2405; J3010; J3370; J3480; J3490; J7030; Q9963; Q9967

== ENCOUNTER 2019-04-01 23:17 | Inpatient (IN) | payer MEDICAID, MEDICARE ==
[~2019-04-01] VITALS: Ht 154.9 cm; Wt 75.0 kg
[~2019-04-01 23:17] MED LIST changes: -CARV-50 PO; -DOCU100C40 PO; -ESOM40CA30 PO; +ESOM40CA49 PO; -GOLYS PO; -HYDR-3965 PO; +LINA5TAB4 PO; +LISI10TA4 PO; -OMEP-84 PO; -ROSU10TA PO; +ROSU10TA2 PO; -SUCR1TAB PO; -VALS40TA2 PO
--- NOTE | 2019-04-02 01:22 | NUR ---
DR MIRANDA AT THE BEDSIDE DOING ASSESMENT.
[2019-04-02] MEDS ORDERED: ondansetron/PF 4mg/2ml inj IV ONE ×3 (01:25→08:20)
[2019-04-02] MEDS ORDERED: fentaNYL/PF 50MCG/1 ML 2ML syringe IV ONE (01:30)
[2019-04-02] MEDS ORDERED: normal saline 1000ml 1,000 ML IV ONE (01:30)
[2019-04-02 02:50] LABS: BASOPHILS % (AUTO) 0.5 % (0-1); EOSINOPHILS # (AUTO) 0.3 X10'3 (0-0.9); EOSINOPHILS % (AUTO) 4.2 % (0-6); HEMATOCRIT 25.5 % (35.0-45.0); HEMOGLOBIN 8.5 g/dl (12.0-16.0); LYMPHOCYTES # (AUTO) 0.8 X10'3 (1.1-4.8); LYMPHOCYTES % (AUTO) 12.8 % (21-51); MEAN CORPUSCULAR HEMOGLOBIN 32.4 PG (27.0-31.0); MEAN CORPUSCULAR HGB CONC 33.3 g/dL (33.0-36.5); MEAN CORPUSCULAR VOLUME 97.5 FL (78-98); MEAN PLATELET VOLUME 10.2 FL (7.4-10.4); MONOCYTES # (AUTO) 0.5 X10'3 (0-0.9); MONOCYTES % (AUTO) 8.4 % (2-12); NEUTROPHILS # (AUTO) 4.7 X10'3 (1.8-7.7); NEUTROPHILS % (AUTO) 74.1 % (42-75); PLATELET COUNT 144 X10'3 (140-440); RED BLOOD COUNT 2.62 X10'6 (4.20-5.60); RED CELL DISTRIBUTION WIDTH 14.7 % (11.5-14.5); WHITE BLOOD COUNT 6.3 X10'3 (4.5-11.0)
[2019-04-02 05:34] LABS: ALANINE AMINOTRANSFERASE 26 U/L (12-78); ALBUMIN 2.2 G/DL (3.4-5.0); ALBUMIN/GLOBULIN RATIO 0.8 (1.1-1.5); ALKALINE PHOSPHATASE 225 IU/L (46-116); ANION GAP 7 (8-16); ASPARTATE AMINO TRANSFERASE 21 U/L (10-37); BILIRUBIN,TOTAL 0.3 MG/DL (0.1-1.0); BLOOD UREA NITROGEN 32 MG/DL (7-18); BUN/CREATININE RATIO 43.8 (6.6-38.0); CHLORIDE 111 MMOL/L (99-107); CREATININE 0.73 MG/DL (0.40-0.90); GLUCOSE 190 MG/DL (70-104); LIPASE < 50 U/L (73-393); POTASSIUM 3.6 MMOL/L (3.5-5.1); SODIUM 140 MMOL/L (135-145); TOTAL CARBON DIOXIDE 21.6 MMOL/L (24-32); TOTAL PROTEIN 4.8 G/DL (6.4-8.2); eGFR 78 ML/MIN
[2019-04-02 05:46] LABS: CALCIUM 5.8 MG/DL (8.5-10.1)
[2019-04-02] MEDS ORDERED: calcium chloride 100 MG/1 ML inj IV ONE (05:55)
[2019-04-02] MEDS ORDERED: LEVO750T21 PO (05:57)
[2019-04-02] MEDS ORDERED: levoFLOXACIN 750MG TABLET PO ONE (06:00)
[2019-04-02] MEDS ORDERED: calcium chloride inj. 1,000 MG in normal saline 100ml IV soln 90 ML IV ONE (07:00)
[2019-04-02] MEDS ORDERED: dextrose ORAL solution 15 GM/59 ML bottle PO PRN ×2 (08:55)
[2019-04-02] MEDS ORDERED: acetaminophen 325mg tablet PO PRN (08:55)
[2019-04-02] MEDS ORDERED: mag hydrox/Alum hydrox/simeth 30ml oral suspension PO PRN (08:55)
[2019-04-02] MEDS ORDERED: potassium Cl 20 mEq SR tablet PO PRN ×2 (08:55)
[2019-04-02] MEDS ORDERED: magnesium 2GM in 50ml NS 50 ML IV PRN (08:55)
[2019-04-02] MEDS ORDERED: dextrose 50%-water 50ml dispensing syringe IV PRN ×2 (08:55)
[2019-04-02] MEDS ORDERED: insulin Lispro (HumaLOG) vial - multi-dose SQ SCH (08:55)
[2019-04-02] MEDS ORDERED: glucagon, human recombinant 1mg kit SUBCUT PRN (08:55)
[2019-04-02] MEDS ORDERED: potassium CL 10mEq/100ml bag 100 ML IV PRN (08:55)
[2019-04-02] MEDS ORDERED: magnesium 4gm in 100ml NS 100 ML IV PRN (08:55)
[2019-04-02] MEDS ORDERED: MESSAGE TO PHARMACY PO ONE (08:55)
[2019-04-02] MEDS ORDERED: docusate sod 100mg capsule PO PRN (08:55)
[2019-04-02 09:21] LABS: HEMOGLOBIN A1C 8.3 % (4.5-6.2)
--- NOTE | 2019-04-02 10:57 | NUR ---
Received patient report from JAN Gramajo.
[2019-04-02 12:15] VITALS: BP 182/80
[2019-04-02] MEDS: ondansetron/PF 4mg/2ml inj IV PRN ×2 (13:59→23:20)
--- NOTE | 2019-04-02 18:15 | NUR ---
Patient in room [facility]. I have received report from Lilliana MONTOYA and had the opportunity to ask questions and assume patient care.
[2019-04-02 18:25] VITALS: BP 225/94
[2019-04-02 18:30] VITALS: BP 177/67
[2019-04-02 18:32] VITALS: BP 185/90
--- NOTE | 2019-04-02 18:32 | NUR ---
Problems reprioritized. Patient report given, questions answered & plan of care reviewed with JAN Escalera.
[2019-04-02] MEDS ORDERED: LORazepam 0.5 MG tablet PO PRN (18:35)
[2019-04-02] MEDS ORDERED: LORazepam 1 MG tablet PO ONE (18:35)
[2019-04-02] MEDS ORDERED: nitroGLYCERIN 0.4mg SUBLingual tab SL PRN (20:00)
[2019-04-02] MEDS: dronabinol 2.5mg capsule PO PRN (20:33)
[2019-04-02] MEDS: insulin glargine (Lantus) pen - multi-dose SQ SCH (21:25)
[2019-04-03] VITALS: BP 159/53
[2019-04-03] MEDS ORDERED: LISI40TA4 PO (02:30)
[2019-04-03] MEDS ORDERED: LORA0.5T PO (02:30)
[2019-04-03] MEDS ORDERED: PANT-47 PO (02:30)
[2019-04-03] MEDS ORDERED: CYAN-51 PO (02:30)
[2019-04-03] MEDS ORDERED: VERA120T7 PO (02:30)
[2019-04-03] MEDS: dronabinol 2.5mg capsule PO PRN ×3 (03:58→19:23)
--- NOTE | 2019-04-03 06:31 | NUR ---
Problems reprioritized. Patient report given, questions answered & plan of care reviewed with Pao MONTOYA.
[2019-04-03] MEDS: ondansetron/PF 4mg/2ml inj IV PRN ×3 (06:33→20:10)
[2019-04-03 07:00] VITALS: BP 196/66
[2019-04-03 07:01] LABS: BASOPHILS # (AUTO) 0.1 X10'3 (0-0.2); EOSINOPHILS # (AUTO) 0.1 X10'3 (0-0.9); EOSINOPHILS % (AUTO) 2.8 % (0-6); HEMATOCRIT 24.5 % (35.0-45.0); HEMOGLOBIN 8.4 g/dl (12.0-16.0); LYMPHOCYTES # (AUTO) 0.7 X10'3 (1.1-4.8); LYMPHOCYTES % (AUTO) 13.1 % (21-51); MEAN CORPUSCULAR HEMOGLOBIN 32.5 PG (27.0-31.0); MEAN CORPUSCULAR HGB CONC 34.1 g/dL (33.0-36.5); MEAN CORPUSCULAR VOLUME 95.4 FL (78-98); MEAN PLATELET VOLUME 10.3 FL (7.4-10.4); MONOCYTES # (AUTO) 0.4 X10'3 (0-0.9); MONOCYTES % (AUTO) 8.4 % (2-12); NEUTROPHILS # (AUTO) 3.8 X10'3 (1.8-7.7); NEUTROPHILS % (AUTO) 74.7 % (42-75); PLATELET COUNT 148 X10'3 (140-440); RED BLOOD COUNT 2.57 X10'6 (4.20-5.60); RED CELL DISTRIBUTION WIDTH 14.5 % (11.5-14.5); WHITE BLOOD COUNT 5.2 X10'3 (4.5-11.0)
[2019-04-03 07:17] LABS: ALANINE AMINOTRANSFERASE 26 U/L (12-78); ALBUMIN 2.5 G/DL (3.4-5.0); ALBUMIN/GLOBULIN RATIO 0.8 (1.1-1.5); ALKALINE PHOSPHATASE 240 IU/L (46-116); ANION GAP 6 (8-16); ASPARTATE AMINO TRANSFERASE 20 U/L (10-37); BILIRUBIN,TOTAL 0.6 MG/DL (0.1-1.0); BLOOD UREA NITROGEN 21 MG/DL (7-18); BUN/CREATININE RATIO 26.9 (6.6-38.0); CALCIUM 8.5 MG/DL (8.5-10.1); CHLORIDE 104 MMOL/L (99-107); CREATININE 0.78 MG/DL (0.40-0.90); GLUCOSE 104 MG/DL (70-104); MAGNESIUM 1.8 MG/DL (1.5-2.4); POTASSIUM 3.7 MMOL/L (3.5-5.1); SODIUM 138 MMOL/L (135-145); TOTAL CARBON DIOXIDE 28.1 MMOL/L (24-32); TOTAL PROTEIN 5.6 G/DL (6.4-8.2); eGFR 72 ML/MIN
[2019-04-03] MEDS: K and/or MAG REPLACEMENT MC SCH (08:00)
[2019-04-03] MEDS: enoxaparin 40mg/0.4ml syringe SQ SCH (08:06)
[2019-04-03] MEDS: HYDROmorphone inj. 0.5 MG/0.5 ML DISP.SYRIN IV PRN ×2 (10:41→15:35)
--- NOTE | 2019-04-03 10:55 | NUR ---
PT C/O OF PRESSURE IN HER CHEST, HEAVINESS TO L ARM, PAIN TO JAW. VSS 191/67 HR 85 02 93 2L R 16[address] LINTON. INSTRUCTED TO GIVE IV PAIN MEDICATION AT THIS TIME. Addendum: 04/03/19 at 1104 by Irma Morocho RN DOES NOT FEEL ITS NECESSARY TO PLACE PT ON TELE MONITOR AT THIS TIME
[2019-04-03 10:58] LABS: C DIFF SPECIMEN=DIARRHEA? ACCEPTABLE; C DIFFICILE TOXINS A&B POSITIVE (Neg)
[2019-04-03 10:59] LABS: C DIFF ANTIGEN POSITIVE (NEGATIVE)
[2019-04-03 11:23] VITALS: BP 187/67
[2019-04-03] MEDS: metroNIDAZOLE-Flagyl 500mg/NS 100 ML IV SCH ×3 (11:51→23:08)
--- NOTE | 2019-04-03 14:21 | NUR ---
AFTER EVALUATING PT I NOTICED MILD L SIDE MOUTH DROOP. PT C/O L ARM HEAVINESS AND L LEG WEAKNESS. BP 204/[address] LINTON AND CALLED STROKE ALERT. HEAD CT DONE. STROKE NURSE CALOS EVALUATED PT. DR LINTON WAS NOTIFIED ON HER EVAL RESULTS.
--- NOTE | 2019-04-03 14:33 | NUR ---
Malnutrition consult: Pt admit w/ intractable N/V likely r/t DM gastroparesis per MD note hx T2DM A1C 8.3. Pt hx gastroparesis, GERD, peptic ulcer disease, hernia, and IBD. Positive for c.diff on admit. Advanced to clear liquids 25% PO first meal. Given mild BLE edema, mild weakness, pending PO diet hx, and all pt stated wt hx w/ current wt up from prior in August fails to meet minimum 2 malnutrition criteria at this time. Will monitor for additional criteria this admit and pt will need written/verbal DM/gastroparesis eds once stable prior to d/c. Rec: 1. advance diet per MD to carb controlled 2. monitor for ONS needs 3. DM/gastroparesis once stable prior to d/c 4. weekly wts Addendum: 04/03/19 at [address] Amended: Links added.
[2019-04-03] MEDS ORDERED: LORazepam 0.5 MG tablet PO PRN (14:40)
--- NOTE | 2019-04-03 15:28 | NUR ---
PAGER ID: [phone] MESSAGE: THA LATHAM. WOULD YOU LIKE TO START PT ON FLUIDS? SURG PATRICK [id number]
--- NOTE | 2019-04-03 18:14 | NUR ---
Problems reprioritized. Patient report given, questions answered & plan of care reviewed with SONJA MONTOYA.
--- NOTE | 2019-04-03 18:34 | NUR ---
Received report from Pao MONTOYA pt is resting on 2L of O2 via NC in no apparent distress
[2019-04-03 19:00] VITALS: BP 198/73
[2019-04-03] MEDS: pantoprazole 40mg Tablet.DR PO SCH (20:00)
[2019-04-03] MEDS: insulin glargine (Lantus) pen - multi-dose SQ SCH (20:54)
[2019-04-03] MEDS: gabapentin 300mg capsule PO SCH (21:00)
[2019-04-03] MEDS: lisinopril 20mg tablet PO SCH (23:00)
[2019-04-03 23:15] VITALS: BP_SYST 155; BP_SYST 216; BP_DIAS 78; BP_DIAS 86
--- NOTE | 2019-04-03 23:15 | NUR ---
Spoke with Dr. chen at 2250 regarding pt having blood pressure of 216/96, Dr. Chen ordered to start pts home meds of 40mg of Lisinopril. Went and rechecked pts B/P it was 155/78 I will hold off on the Lisinipril for now and continue to monitor
[2019-04-04] VITALS (8 sets, daily range): BP systolic 155–197; BP diastolic 56–135
[2019-04-04] MEDS: ondansetron/PF 4mg/2ml inj IV PRN ×2 (04:30→12:02)
[2019-04-04] MEDS: dronabinol 2.5mg capsule PO PRN ×3 (05:20→22:11)
--- NOTE | 2019-04-04 06:30 | NUR ---
GAve report to Claritza MONTOYA pt is resting on 3L of O2 via NC, in no apparent distress, call light and items of freq use within reach.
[2019-04-04] MEDS: metroNIDAZOLE-Flagyl 500mg/NS 100 ML IV SCH ×2 (07:53→16:33)
[2019-04-04] MEDS: lisinopril 20mg tablet PO SCH (07:54)
[2019-04-04] MEDS: enoxaparin 40mg/0.4ml syringe SQ SCH (07:56)
[2019-04-04] MEDS: K and/or MAG REPLACEMENT MC SCH (08:00)
[2019-04-04] MEDS ORDERED: lisinopril 20mg tablet PO SCH (08:00)
[2019-04-04] MEDS: pantoprazole 40mg Tablet.DR PO SCH (08:00)
[2019-04-04] MEDS ORDERED: cyanocobalamin 500mcg tablet PO SCH (08:00)
[2019-04-04] MEDS ORDERED: atorvastatin 20mg tablet PO SCH (08:00)
[2019-04-04] MEDS: gabapentin 300mg capsule PO SCH ×3 (08:00→21:00)
[2019-04-04 09:02] LABS: BASOPHILS % (AUTO) 0.4 % (0-1); EOSINOPHILS % (AUTO) 0.5 % (0-6); HEMATOCRIT 27.8 % (35.0-45.0); HEMOGLOBIN 9.7 g/dl (12.0-16.0); LYMPHOCYTES # (AUTO) 0.6 X10'3 (1.1-4.8); LYMPHOCYTES % (AUTO) 7.3 % (21-51); MEAN CORPUSCULAR HGB CONC 34.7 g/dL (33.0-36.5); MEAN PLATELET VOLUME 10.4 FL (7.4-10.4); MONOCYTES # (AUTO) 0.5 X10'3 (0-0.9); MONOCYTES % (AUTO) 6.1 % (2-12); NEUTROPHILS # (AUTO) 7.1 X10'3 (1.8-7.7); NEUTROPHILS % (AUTO) 85.7 % (42-75); PLATELET COUNT 174 X10'3 (140-440); RED BLOOD COUNT 2.93 X10'6 (4.20-5.60); RED CELL DISTRIBUTION WIDTH 14.5 % (11.5-14.5); WHITE BLOOD COUNT 8.2 X10'3 (4.5-11.0)
[2019-04-04 09:14] LABS: ALANINE AMINOTRANSFERASE 25 U/L (12-78); ALBUMIN 2.9 G/DL (3.4-5.0); ALBUMIN/GLOBULIN RATIO 0.9 (1.1-1.5); ALKALINE PHOSPHATASE 248 IU/L (46-116); ANION GAP 7 (8-16); ASPARTATE AMINO TRANSFERASE 18 U/L (10-37); BILIRUBIN,TOTAL 0.8 MG/DL (0.1-1.0); BLOOD UREA NITROGEN 21 MG/DL (7-18); BUN/CREATININE RATIO 28.8 (6.6-38.0); CALCIUM 8.4 MG/DL (8.5-10.1); CHLORIDE 103 MMOL/L (99-107); CREATININE 0.73 MG/DL (0.40-0.90); GLUCOSE 80 MG/DL (70-104); MAGNESIUM 1.7 MG/DL (1.5-2.4); POTASSIUM 3.1 MMOL/L (3.5-5.1); SODIUM 139 MMOL/L (135-145); TOTAL CARBON DIOXIDE 29.4 MMOL/L (24-32); TOTAL PROTEIN 6.3 G/DL (6.4-8.2); eGFR 78 ML/MIN
[2019-04-04] MEDS ORDERED: ondansetron inj. 24 MG in normal saline 250ml IV soln 228 ML IV SCH (10:50)
[2019-04-04] MEDS ORDERED: normal saline 1000ml 1,000 ML IV SCH (10:50)
[2019-04-04] MEDS ORDERED: ALBU18HF2 INH (11:23)
[2019-04-04] MEDS ORDERED: BUDE10.2 PO (11:28)
[2019-04-04] MEDS ORDERED: LIDO700A47 TOP (11:28)
[2019-04-04] MEDS ORDERED: SENN-145 PO (11:28)
[2019-04-04] MEDS ORDERED: CHOL400T PO (11:28)
[2019-04-04] MEDS ORDERED: CALC500T43 PO (11:28)
[2019-04-04] MEDS: HYDROmorphone inj. 0.5 MG/0.5 ML DISP.SYRIN IV PRN ×2 (12:03→19:51)
[2019-04-04] MEDS: potassium CL 10mEq/100ml bag 100 ML IV PRN ×4 (12:15→19:51)
--- NOTE | 2019-04-04 13:44 | NUR ---
MD aware. GUTIERRES IV BP medication ordered. Addendum: 04/04/19 at 1347 by Claritza Aponte RN Amended: Links added.
[2019-04-04] MEDS: hydrALAZINE 20mg/ml inj. IV PRN ×2 (14:08→19:51)
--- NOTE | 2019-04-04 15:19 | NUR ---
Extended PIV inserted to the right upper arm brachial vein after 1 failed attempt to the right basilic vein using ultrasound, Kanwal well. 3 attempts to establish a PIV to righ forearm unsuccessful using ultrasound. Easy access but unable to thread Addendum: 04/04/19 at 1521 by Delmy Nunez RN Amended: Links added.
[2019-04-04] MEDS ORDERED: LORazepam 2 mg/ml vial IV PRN (16:05)
--- NOTE | 2019-04-04 18:06 | NUR ---
Problems reprioritized. Patient report given, questions answered & plan of care reviewed with JAN Maldonado.
[2019-04-04] MEDS ORDERED: lactobacillus rhamnosus 10,000 MMU CELLS/CAPSULE PO SCH (20:00)
[2019-04-04] MEDS ORDERED: pantoprazole 40 MG vial IV SCH (20:00)
[2019-04-04] MEDS ORDERED: ESOMEPRAZOLE 40 MG VIAL IV SCH (20:00)
--- NOTE | 2019-04-04 20:00 | NUR ---
Family states they want to take patient home tonight and admit to [facility]. Patient has family that lives close by and is able to care for her. Advised family to allow patient to stay overnight. Family agreeable.
[2019-04-04] MEDS: insulin glargine (Lantus) pen - multi-dose SQ SCH (21:00)
[2019-04-04] MEDS ORDERED: HYDROmorphone 1 mg/ml syringe IV PRN (21:15)
--- NOTE | 2019-04-04 21:30 | NUR ---
Patient and family have decided to leave [facility]. Requested discharge from MD so they may transfer patient. Family states they will go AMA without DC orders. MD notified. Unable to discharge. Patient and family refusing to sign AMA form.
--- NOTE | 2019-04-04 22:00 | NUR ---
Administering medications to help patient with transfer. Noticed patient did not have portable oxygen in room. Patient currently on 3L oxygen. Family states patient is to wear oxygen at all times. Family states they will go past house and grab oxygen prior to driving patient to [facility]. I advised this is strongly discouraged.
--- NOTE | 2019-04-04 22:10 | NUR ---
Caregiver in room asking about medical records. Advised records will have to be obtained from the medical records department which is not open at this time. Advised to call tomorrow. Daughter provided with details of medications given tonight such as protonix drip, nexium, marinol, dilaudid and potassium replacement of 40 mEq throughout the day for a potassium level of 3.1. Requested family and patient reconsider their choice to transfer tonight, patient and family refused.
--- NOTE | 2019-04-04 22:30 | NUR ---
Family left to go get patients oxygen
--- NOTE | 2019-04-04 23:20 | NUR ---
brake lining maker spoke to family about regulator. Daughter of patient states that she called the home, verified the regulator was there, and she knew how to assemble and use the portable air. brake lining maker and nursing aid wheeled patient to daughters private car.
--- NOTE | 2019-04-04 23:33 | NUR ---
RT paged, family did not have adaptor to make O2 work. RT came, entire regulator missing. Family left to go get regulator.
--- NOTE | 2019-04-04 23:35 | NUR ---
Patients family decided to take patient without grabbing regulator first. States the regulator for the O2 is at the home, she was just put on O2 a couple of days ago when DC'd from [facility]. States she will be fine to go around the corner to grab regulator. Patient is agreeable. Removed extended IV from left upper arm; IV intact. Patient tolerated well. Advised family to watch for bleed and apply pressure if bleeding occurs. Patient was wheeled down to family car with all belongings. Patient left against the advice of
== END 2019-04-04 23:35 | disposition left against medical advice (07) | DRG 248 ==
LOC: ER 23:18 → SUR 3N 04-02 10:27 → CMPBEDREQ 04-04 20:59
PROVIDERS: ADMIT Family Medicine; ATTEND Family Medicine
DX: A04.72 Enterocolitis due to Clostridium difficile, not specified as recurrent (principal); E87.2 Acidosis; E11.42 Type 2 diabetes mellitus with diabetic polyneuropathy; D64.9 Anemia, unspecified; E83.51 Hypocalcemia; K31.84 Gastroparesis; E78.00 Pure hypercholesterolemia, unspecified; E11.43 Type 2 diabetes mellitus with diabetic autonomic (poly)neuropathy; I10 Essential (primary) hypertension; I25.10 Atherosclerotic heart disease of native coronary artery without angina pectoris; Z53.21 Procedure and treatment not carried out due to patient leaving prior to being seen by health care provider; Z60.2 Problems related to living alone; E87.6 Hypokalemia; E78.5 Hyperlipidemia, unspecified; G43.909 Migraine, unspecified, not intractable, without status migrainosus; K21.9 Gastro-esophageal reflux disease without esophagitis; M79.7 Fibromyalgia; Z80.49 Family history of malignant neoplasm of other genital organs; Z83.3 Family history of diabetes mellitus; Z87.01 Personal history of pneumonia (recurrent); Z87.11 Personal history of peptic ulcer disease; Z90.49 Acquired absence of other specified parts of digestive tract; Z90.710 Acquired absence of both cervix and uterus; Z88.8 Allergy status to other drugs, medicaments and biological substances; Z79.899 Other long term (current) drug therapy; Z79.4 Long term (current) use of insulin
CPT/HCPCS: 36415; 70450; 71045; 74176; 80053; 82330; 82948; 83036; 83690; 83735; 83880; 84484; 85025; 87081; 87324; 87449; 96365; 96375; 96376; 99285; G0378; J0360; J1170; J1650; J1815; J2060; J2405; J3480; J3490; J7030; J7050; Q0167